=== PATIENT | female | born 1980 | race Caucasian/White ===

== ENCOUNTER 2016-06-23 15:50 | Emergency (ER) | payer BC ==
[2016-06-23 16:22] VITALS: BP 133/84
--- NOTE | 2016-06-23 16:37 | UC ---
Respiratory Complaint HPI - HPI Summary HPI Summary: cough, nasal congestion, FUNES, sinus pressure, malaise. No fever. Mild ST. Poor appetite. "I get sinus infections a lot, I think I have one again." Symptoms for 2d - History of Current Complaint Chief Complaint: UCGeneralIllness Stated Complaint: SINUSES Time Seen by Provider: 06/23/16 16:26 Hx Obtained From: Patient, Family/Manager New Product Hx Last Menstrual Period: 06/05/16 Onset/Duration: Gradual Onset, Lasting Days - 2 Timing: Constant Severity Initially: Mild Severity Currently: Moderate Character: Cough: Nonproductive Associated Signs And Symptoms: Positive: Chills, Wheezing - off and on, URI, Nasal Congestion, Hoarseness, Sinus Discomfort - Risk Factors Pulmonary Embolism Risk Factors: Negative Cardiac Risk Factors: Negative Pseudomonas Risk Factors: Negative Tuberculosis Risk Factors: Negative - Allergies/Home Medications Allergies/Adverse Reactions: Allergies Allergy/AdvReac Type Severity Reaction Status Date / Time pepperoni Allergy Vomiting Uncoded 06/23/16 16:22 PMH/Surg Hx/FS Hx/Imm Hx Endocrine History Of: Denies: Diabetes, Thyroid Disease, Hyperthyroidism, Hypothyroidism, Dyslipidemia Cardiovascular History Of: Denies: Cardiac Disorders, Hypertension, Pacemaker/ICD, Myocardial Infarction , Congestive Heart Failure, Atrial Fibrillation, Deep Vein Thrombosis, Bleeding Disorders Respiratory History Of: Reports: Asthma Denies: COPD, Bronchitis, Pneumonia, Pulmonary Embolism GI/ History Of: Reports: Gastroesophageal Reflux - She has not had any investigation or testing done on her GERD. Denies: Ulcer, Gastrointestinal Bleed, Gall Bladder Disease, Kidney Stones, Diverticulitis, Renal Disease, Urosepsis Neurological History Of: Denies: TIA, CVA, Dementia, Seizures, Migraine Psychological History Of: Denies: Anxiety, Depression, Bipolar Disorder, Schizophrenia, Post Traumatic Stress Disorder Cancer History Of: Denies: Lung Cancer, Colorectal Cancer, Breast Cancer, Prostate Cancer, Cervical Cancer Other History Of: Negative For: HIV, Hepatitis B, Hepatitis C, Anticoagulant Therapy - Surgical History Surgical History: Yes Surgery Procedure, Year, and Place: TONSILECTOMY - Family History Known Family History: Positive: None Negative: Cardiac Disease - No premature heart disease in 1st degree relatives. - Social History Occupation: Unemployed Lives: With Family Alcohol Use: None Substance Use Type: None Smoking Status (MU): Never Smoked Tobacco When Did the Patient Quit Smoking/Using Tobacco: 1999 - Immunization History Most Recent Influenza Vaccination: no Review of Systems Constitutional: Negative Skin: Negative Eyes: Negative ENT: Sore Throat, Nasal Discharge Respiratory: Cough Cardiovascular: Negative Gastrointestinal: Negative Genitourinary: Negative Motor: Negative Neurovascular: Negative Musculoskeletal: Negative Neurological: Headache Psychological: Negative All Other Systems Reviewed And Are Negative: Yes Physical Exam Triage Information Reviewed: Yes Appearance: Well-Appearing, No Pain Distress, Well-Nourished Vital Signs: Initial Vital Signs Temp 98.2 F 06/23/16 16:18 Pulse 88 06/23/16 16:18 Resp 18 06/23/16 16:18 BP 133/84 06/23/16 16:18 Pulse Ox 100 06/23/16 16:18 Vital Signs Reviewed: Yes Eye Exam: Normal Eyes: Positive: Conjunctiva Clear ENT: Positive: Hearing grossly normal, Pharyngeal erythema, Nasal congestion, Nasal drainage, TMs normal, Muffled/hoarse voice - hoarse. Negative: Tonsillar swelling, Tonsillar exudate, Trismus Neck exam: Normal Respiratory: Positive: Lungs clear, Normal breath sounds, No respiratory distress, No accessory muscle use Musculoskeletal Exam: Normal Neurological Exam: Normal Psychological Exam: Normal Skin Exam: Normal UC Diagnostic Evaluation - Laboratory O2 Sat by Pulse Oximetry: 100 Respiratory Course/Dx - Differential Dx/Diagnosis Differential Diagnosis/HQI/PQRI: Bronchitis, Lower Resp Infection, Sinusitis Provider Diagnoses: URI Discharge - Discharge Plan Condition: Stable Disposition: HOME Prescriptions: Albuterol HFA INHALER* [Ventolin HFA Inhaler*] 1 - 2 puff INH Q4H PRN #1 mdi PRN Reason: cough, wheezing Azithromycin TAB* [Zithromax TAB (Z-ACE) 250 mg #6 tabs] 2 tab PO .TODAY, THEN 1 DAILY #1 ace Guaifenesin-Codeine [Cheratussin AC] 1 - 2 teasp PO QID PRN #120 ml MDD 30ml PRN Reason: Cough Pseudoephedrine HCl [Sudafed 12 Hour] 120 mg PO BID PRN #20 tab PRN Reason: Congestion Patient Education Materials: Upper Respiratory Infection (ED) Referrals: No Primary Care Phys,NOPCP [Primary Care Provider] -
== END 2016-06-23 16:40 | disposition home or self-care (01) ==
LOC: UCCORT 15:50
DX: J06.9 Acute upper respiratory infection, unspecified (principal)
CPT/HCPCS: 99212; G0463

== ENCOUNTER 2017-11-14 11:26 | Emergency (ER) | payer BC ==
[2017-11-14 12:33] VITALS: BP 138/93
--- NOTE | 2017-11-14 13:00 | ED ---
Upper Extremity Pain - HPI Summary HPI Summary: 37F presents with left elbow pain for the past day. She states she pushed herself up with her arms behind her and felt a pop in her left elbow. the pain radiates to her thumb when she extends or supinates and pronates her wrist. no upper arm pain. pain is greatest at lateral aspect of elbow. no numbness or tingling. no weakness. states did not break anything. 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 - History of Current Complaint Chief Complaint: UCUpperExtremity Stated Complaint: LEFT ARM COMPLAINT Time Seen by Provider: 11/14/17 12:49 Hx Last Menstrual Period: period is due next week - Allergies/Home Medications Allergies/Adverse Reactions: Allergies Allergy/AdvReac Type Severity Reaction Status Date / Time pepperoni Allergy Vomiting Uncoded 11/14/17 12:31 Home Medications: Home Medications Heart Burn Med 1 dose PO DAILY 11/14/17 [History Confirmed 11/14/17] PMH/Surg Hx/FS Hx/Imm Hx Endocrine/Hematology History: Denies: Hx Anticoagulant Therapy, Hx Diabetes, Hx Thyroid Disease Cardiovascular History: Denies: Hx Congestive Heart Failure, Hx Deep Vein Thrombosis, Hx Hypertension , Hx Myocardial Infarction, Hx Pacemaker/ICD Respiratory History: Reports: Hx Asthma Denies: Hx Chronic Obstructive Pulmonary Disease (COPD), Hx Lung Cancer, Hx Pneumonia, Hx Pulmonary Embolism GI History: Denies: Hx Gall Bladder Disease, Hx Gastrointestinal Bleed, Hx Ulcer, Hx Urosepsis History: Denies: Hx Kidney Stones, Hx Renal Disease Sensory History: Denies: Hx Hearing Aid Neurological History: Denies: Hx Dementia, Hx Migraine, Hx Seizures, Hx Transient Ischemic Attacks (TIA) Psychiatric History: Denies: Hx Anxiety, Hx Depression, Hx Panic Disorder, Hx Schizophrenia, Hx Bipolar Disorder - Surgical History Surgery Procedure, Year, and Place: TONSILECTOMY Infectious Disease History: No Infectious Disease History: Denies: Traveled Outside the [place] in Last 30 Days - Family History Known Family History: Positive: None Negative: Cardiac Disease - No premature heart disease in 1st degree relatives. - Social History Alcohol Use: None Substance Use Type: Reports: None Smoking Status (MU): Never Smoked Tobacco Review of Systems Negative: Fever Negative: Chest Pain Negative: Shortness Of Breath Positive: Myalgia - left elbow and forearm pain All Other Systems Reviewed And Are Negative: Yes Physical Exam Triage Information Reviewed: Yes Vital Signs On Initial Exam: Initial Vitals Temp Pulse Resp BP Pulse Ox 98.1 F 73 14 138/93 99 11/14/17 12:26 11/14/17 12:11/14/17 12:26 11/14/17 12:11/14/17 12:26 Vital Signs Reviewed: Yes Appearance: Positive: Well-Appearing Skin: Positive: Warm, Dry Head/Face: Positive: Normal Head/Face Inspection Eyes: Positive: Normal, Conjunctiva Clear ENT: Positive: Pharynx normal Respiratory/Lung Sounds: Positive: Clear to Auscultation, Breath Sounds Present Cardiovascular: Positive: Normal, RRR Musculoskeletal: Positive: Limited @ - pronation and supination cause pain, Other - tenderness over lateral epicondyle and over brachioradialis, pain greatest with extension and supination of arm Neurological: Positive: Normal Psychiatric: Positive: Normal Diagnostics - Vital Signs Vital Signs Temp Pulse Resp BP Pulse Ox 11/14/17 12:26 98.1 F 73 14 138/93 99 - Laboratory Lab Statement: Any lab studies that have been ordered have been reviewed, and results considered in the medical decision making process. Course/Dx - Course Course Of Treatment: 37F presents with left elbow pain for the past day. She states she pushed herself up with her arms behind her and felt a pop in her left elbow. the pain radiates to her thumb when she extends or supinates and pronates her wrist. no upper arm pain. pain is greatest at lateral aspect of elbow. no numbness or tingling. no weakness. states did not break anything. 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 on exam has tenderness lateral epicondyles. pain greatest with supination and prontation. neurovascular intact. likely a sprain. will have follow up with ortho if no improvement with conservative treatments. will have follow up with primary as blood pressure is elevated at this visit. pateint understand and agrees with plan. - Diagnoses Differential Diagnosis/HQI/PQRI: Positive: Fracture (Closed), Strain, Sprain Provider Diagnoses: Left elbow pain Discharge - Sign-Out/Discharge Documenting (check all that apply): Discharge/Admit/Transfer - Discharge Plan Condition: Good Disposition: HOME Patient Education Materials: Elbow Sprain (ED) Referrals: Edu,Caren, MD [Primary Care Provider] - Lisa Rader MD [Medical Doctor] - Additional Instructions: use sling as needed Avoid repetitive supination and pronation of arm Ice, elevate Follow up with ortho Take tyenlol or ibuprofen every 6 hours as needed for pain Return to UC if develop any new or worsening symptoms - Billing Disposition and Condition Condition: GOOD Disposition: Home
== END 2017-11-14 13:08 | disposition home or self-care (01) ==
LOC: UCCORT 11:26
DX: M25.522 Pain in left elbow (principal); X50.0XXA Overexertion from strenuous movement or load, initial encounter; Y93.89 Activity, other specified; Y92.9 Unspecified place or not applicable
CPT/HCPCS: 99211; G0463

== ENCOUNTER 2019-06-24 10:32 | Emergency (ER) | payer BC ==
--- OUTSIDE RECORDS SUMMARY | 2019-06-24 10:55 | XMS REPORT | Continuity of Care Document ---
:1980 External Reference #:[id number] Author Name Lore Dhillon MD Address [address] [place] [address] Care Team Providers Name Role Phone April Heaton CNM - Advanced Practice Care Team Information Automatic Toe Laster [phone] Attic Blower Marie Peoples NP, JIMENA - Nurse Care Team Information Automatic Toe Laster Practitioner Problems Active Problems Provider Date Obesity Caren Sorensen MD Onset: 09/11/2016 Exacerbation of intermittent asthma Caren Sorensen MD Onset: 09/11/2016 Allergic rhinitis Caren Sorensen MD Onset: 09/11/2016 Solitary nodule of lung Caren Sorensen MD Onset: 09/11/2016 Gastroesophageal reflux disease Caren Sorensen MD Onset: 09/11/2016 Pain in limb Glen Kay M.D. Onset: 09/30/2017 Cellulitis of right lower limb Glen Kay M.D. Onset: 09/30/2017 Taking medication Glen Kay M.D. Onset: 09/30/2017 Pain in thoracic spine Lore Dhillon MD Onset: 04/18/2019 Neck pain Lore Dhillon MD Onset: 04/18/2019 Myalgia, other site Lore Dhillon MD Onset: 03/29/2019 Shoulder joint pain Lore Dhillon MD Onset: 03/29/2019 Social History Type Date Description Comments Sex Unknown Tobacco Use Start: Unknown Never Smoked Cigarettes ETOH Use Denies alcohol use Recreational Drug Use Denies Drug Use Tobacco Use Start: Unknown End: Patient is a former smoked for 1 year Unknown smoker when she was 19 Smoking Status Reviewed: 05/15/19 Patient is a former smoked for 1 year smoker when she was 19 Allergies, Adverse Reactions, Alerts Active Allergies Reaction Severity Comments Date NKDA 01/03/2015 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 Medications Active Medications SIG Qnty Indications Ordering Date Provider Famotidine 1 tabby mouth twice 60tabs K21.9 Caren Sorensen, 12/07/2018 20mg a day Tablets Thumb To use when awake 1units M25.531 Caren Sorensen, 11/22/2018 Splint/Neoprene Medium Misc Bumetanide 2 tab by mouth in 90tabs Ratnasingam, 04/19/2018 1mg morning and 1 tab MD Teresa Tablets in afternoon Potassium Chloride take 2 tablets with 90tabs E87.6 Caren Sorensen, 2017 ER food every morning 10Meq Tablets ER and 1 tablet every afternoon Proair HFA 1-2 inhalations 8.500gm Caren Sorensen, 03/24/2018 every 4 hours as 108(90Base) mcg/Act needed for Aerosol shortness of breath and cough Omeprazole 1 tab by mouth 30caps Caren Sorensen, 09/27/2017 20mg every day Capsules DR Vazquez Unknown History Medications Cyclobenzaprine HCL 1 tab by mouth 3 30tabs M79.18 Lore Dhillon, 2018 - 10mg times a day when 05/15/2019 Tablets necessary Wrist Brace right wrist. Wear 1units M25.531 Edu, 11/22/2018 - Misc brace during the MD Caren 11/22/2018 day Medications Administered in Office Medication SIG Qnty Indications Ordering Provider Date Depomedrol 40mg/1cc Caprice Burgos MD 04/04/2019 (methylprednisolone acetate) Injection Immunizations CPT Code Status Date Vaccine Lot # [id number] Refused 04/05/2019 Influenza Virus Vaccine, Quadrivalent, 36 Mos+, .5ML Vital Signs Date Vital Result Comment 05/05/2019 8:28am BP Systolic Sitting Left Arm 125 mmHg BP Diastolic Sitting Left Arm 64 mmHg Body Temperature 98.1 F Heart Rate 88 /min Height 68 inches 5'8" Weight 299.00 lb BMI (Body Mass Index) 45.5 kg/m2 BSA (Body Surface Area) 2.42 m2 She[place]ahl body weight in kilograms 63 kg 04/18/2019 8:27am BP Systolic Sitting Right Arm 120 mmHg BP Diastolic Sitting Right Arm 67 mmHg Heart Rate 91 /min Height 68 inches 5'8" Weight 294.00 lb BMI (Body Mass Index) 44.7 kg/m2 BSA (Body Surface Area) 2.41 m2 She[place]ahl body weight in kilograms 63 kg Results Test Acquired Date Facility Test Result H/L Range Note Basic Metabolic 04/03/2019 [facility] Glucose 135 mg/dL High 74-106 1 Panel [address] [place], [place] [id number] [phone] BUN 15 mg/dL Normal 7-18 Creatinine 0.9 mg/dL Normal 0.6-1.3 Glom Filtration Rate, Estimate >60 mL/min >60 If >60 mL/min >60 2 BUN/Creat 16.6 ratio Sodium 138 mmol/L Normal 136-145 Potassium 3.9 mmol/L Normal 3.5-5.1 Chloride 108 mmol/L High 98-107 Carbon Dioxide 24 mmol/L Normal 21-32 Anion Gap 6 mEq/L Low 8-16 Calcium 8.6 mg/dL Normal 8.5-10.1 Glycohemoglobin 04/03/2019 [facility] Glycohemoglobin 5.7 % Normal 4.2-6.3 3 A1c [address] [facility] (A1c) [place], [place] [id number] [phone] eAG 117 mg/dL LDL Cholesterol Profile 04/03/2019 [facility] Cholesterol 181 mg/dL <[address] [place], [place] [id number] [phone] Triglycerides 161 mg/dL High <150 5 HDL Cholesterol 39 mg/dL Low >40 6 LDL-Cholesterol 110 mg/dL < 100 7 CBC W/Automated 04/03/2019 [facility] White Blood 7.6 K/uL Normal 3.1-10.[address] [place] [address] [phone] Red Blood Count 4.62 M/uL Normal 3.90-5.40 Hemoglobin 13.2 gm/dL Normal 11.6-15.8 Hematocrit 42.1 % Normal 36.0-46.1 Mean Cell Volume 91.1 fl Normal 80.9-99.0 Mean Corpuscular HGB 28.6 pg Normal 25.9-32.7 Mean Corpuscular HGB Conc 31.4 g/dL Normal 30.8-34.3 Platelet Count 284 K/uL Normal 155-360 Red Cell Distri Width SD 42.0 fl Normal 36-47 Red Cell Distri Width %CV 12.7 % Normal 11.7-14.4 Mean Platelet Volume 10.1 fl Normal 8.9-12.4 Neut% 69.6 % Normal 40.4-72.8 Lymph % 21.3 % Normal 20.0-42.0 [place] % 5.1 % Normal 4.3-13.2 Eo% 3.0 % Normal 0.0-6.6 Bas% 0.7 % Normal 0.0-1.1 Immature Grans 0.3 % Normal 0.0-5.0 NRBC % 0.0 /100WBC < 10/ 100 WBC Neut# 5.31 K/uL Normal 1.8-7.0 Lymph # 1.62 K/uL Normal 1.0-4.0 [place] # 0.39 K/uL Normal 0.3-0.9 Eos # 0.23 K/uL Normal 0.0-0.5 Baso # 0.05 K/uL Normal 0.0-0.1 Immature Grans Absolute 0.02 K/uL NRBC # 0.00 K/uL 1 R60.0, E87.6, R73.9, E66.09 2 Note: Persistent reduction for 3 months or more in an eGFR <60 mL/min/1.73 m2 defines CKD. Patients with eGFR values >/=60 mL/min/1.73 m2 may also have CKD if evidence of persistent proteinuria is present. The original MDRD equation for estimated GFR is not valid for patients less than 18 years of age. Additional information may be found at www.kdoqi.org. 3 Elevated levels of HbA1c suggest the need for more aggressive treatment of glycemia. The [place] [employer] recommends that a primary goal of therapy should be a HbA1c of <7% and that physicians should re-evaluate the treatment regimen in patients with HbA1c values consistently >8%. 4 Reference Guidelines*: Desirable: ........... < 200 mg/dL Borderline High: ..... 200-239 mg/dL High: ................ >= 240 mg/dL * The National Cholesterol Education Program (NCEP) 5 Reference Guidelines*: Normal: ............. < 150 mg/dL Borderline High: .... 150-199 mg/dL High: ............... 200-499 mg/dL Very High: .......... > 500 mg/dL * Source: National Cholesterol Education Program (NCEP) 6 Reference Guidelines*: Low HDL: ..... < 40 mg/dL Normal: ..... 40-60 mg/dL Desirable: ... > 60 mg/dL *The National Cholesterol Education Program(NCEP) 7 Reference Guidelines*: Optimal:........... <100 mg/dL Near Optimal....... 100-129 mg/dL Borderline High.... 130-159 mg/dL High............... 160-189 mg/dL Very High.......... >=190 mg/dL * Source: National Cholesterol Education Program (NCEP) Procedures Date Code Description Status 05/08/2019 Injection Single Or Multiple Trigger Points Three Or More Completed Muscles 05/02/2019 Injection Single Or Multiple Trigger Points Three Or More Completed Muscles 04/25/2019 Injection Single Or Multiple Trigger Points Three Or More Completed Muscles 04/18/2019 Injection Single Or Multiple Trigger Points Three Or More Completed Muscles 04/04/201920514 Injection:Tendon Sheath,Lig. Cyst Completed 03/23/2019 91305 Radiology, Shoulder: Two Views (Sso) Completed 03/23/2019 57764 Radiology, Shoulder: Two Views (Sso) Completed Medical Devices Description No Information Available Encounters Type Date Location Provider Dx Diagnosis Office Visit 05/05/2019 Physical Medicine & [facility], MD Lore M54.2 Cervicalgia 8:30a Infectious Disease M54.6 Pain in thoracic spine M79.18 Myalgia, other site Office Visit 04/05/2019 4:00p Primary Care Ofelia, R60.0 Localized edema Office MD Teresa Z28.21 Immunization not carried out because of patient refusal Office Visit 04/04/2019 11:00a Orthopaedic Office Caprice Burgos, M25.532 Pain in left MD wrist M65.4 Radial styloid tenosynovitis [de Quervain] Office Visit 03/29/2019 9:30a Physical Medicine Lore Dhillon, M25.512 Pain in left & Infectious MD shoulder Disease M79.18 Myalgia, other site Office Visit 12/07/2018 1:00p Primary Care Caren Sorensen, M25.531 Pain in right Office MD wrist M65.4 Radial styloid tenosynovitis [de Quervain] R60.0 Localized edema K21.9 Gastro-esophageal reflux disease without esophagitis Office Visit 11/22/2018 2:30p Primary Care Marie Peoples, M25.531 Pain in Office MS, [employer] MANAGER-C, CNM right wrist M65.4 Radial styloid tenosynovitis [de Quervain] Assessments Date Code Description Provider 05/15/2019 M54.2 Cervicalgia Lore Dhillon MD 05/15/2019 M54.6 Pain in thoracic spine Lore Dhillon MD 05/15/2019 M79.18 Myalgia, other site Lore Dhillon MD 05/12/2019 M54.2 Cervicalgia Lore Dhillon MD 05/12/2019 M54.6 Pain in thoracic spine Lore Dhillon MD 05/12/2019 M79.18 Myalgia, other site Lore Dhillon MD 05/08/2019 M54.2 Cervicalgia Lore Dhillon MD 05/08/2019 M54.6 Pain in thoracic spine Lore Dhillon MD 05/08/2019 M79.18 Myalgia, other site Lore Dhillon MD 05/05/2019 M54.2 Cervicalgia Lore Dhillon MD 05/05/2019 M54.6 Pain in thoracic spine Lore Dhillon MD 05/05/2019 M79.18 Myalgia, other site Lore Dhillon MD 05/02/2019 M54.2 CervicalLore Chaney MD 05/02/2019 M54.6 Pain in thoracic spine Lore Dhillon MD 05/02/2019 M79.18 Myalgia, other site Lore Dhillon MD 04/25/2019 M54.2 Cervicalgia Lore Dhillon MD 04/25/2019 M54.6 Pain in thoracic spine Lore Dhillon MD 04/25/2019 M79.18 Myalgia, other site Lore Dhillon MD 04/18/2019 M54.2 Cervicalgia Lore Dhillon MD 04/18/2019 M54.6 Pain in thoracic spine Lore Dhillon MD 04/18/2019 M79.18 Myalgia, other site Lore Dhillon MD 04/05/2019 R60.0 Localized edema Teresa Gilbert MD 04/05/2019 Z28.21 Immunization not carried out because Teresa Gilbert MD of patient refusal 04/04/2019 M25.532 Pain in left wrist Caprice Burgos MD 04/04/2019 M65.4 Radial styloid tenosynovitis [Caprice Yao MD Quervain] 03/29/2019 M25.512 Pain in left shoulder Lore Dhillon MD 03/29/2019 M79.18 Myalgia, other site Lore Dhillon MD 03/23/2019 M25.512 Pain in left shoulder Caprice Burgos MD 03/23/2019 M75.42 Impingement syndrome of left Caprice Burgos MD shoulder 03/23/2019 M54.12 Radiculopathy, cervical region Caprice Burgos MD 12/07/2018 M25.531 Pain in right wrist Caren Sorensen MD 12/07/2018 M65.4 Radial styloid tenosynovitis [Caren Oshea MD Quervain] 12/07/2018 R60.0 Localized edema Caren Sorensen MD 12/07/2018 K21.9 Gastro-esophageal reflux disease Caren Sorensen MD without esophagitis 11/22/2018 M25.531 Pain in right wrist Marie Peoples MS, [employer] MANAGER-C, CNM 11/22/2018 M65.4 Radial styloid tenosynovitis [Marie Moreno MS, ROBIN -C, Aidee] JIMENA Plan of Treatment Future Appointment(s):07/06/2019 4:00 pm - Teresa Gilbert MD at Primary Care [id number]/15/2019 - Lore Dhillon, MDM54.2 [id number] Pain in thoracic hbrkiI84.18 Myalgia, other site Functional Status Functional Condition Comment Date Status Independent with all ADL's Active Mental Status Description No Information Available Referrals Refer to Reason for Referral Status Appt Date Lore Dhillon MD Neck & Back Pain Closed 03/29/2019 [address] [place] [address] [phone]
--- OUTSIDE RECORDS SUMMARY | 2019-06-24 10:55 | XMS REPORT | Continuity of Care Document ---
:1980 External Reference #:[id number] Author Name Lore Dhillon MD Address [address] [place] [address] Care Team Providers Name Role Phone April Heaton CNM - Advanced Practice Care Team Information Interior Design Project Manager Cook Helper Dessert Marie Peoples NP, JIMENA - Nurse Care Team Information Interior Design Project Manager Practitioner Problems Active Problems Provider Date Obesity [...] when she was 19 Smoking Status Reviewed: 05/05/19 Patient is a former smoked for 1 year smoker when she was 19 Allergies, Adverse Reactions, Alerts Active Allergies Reaction Severity Comments Date NKDA 01/03/2015 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 Medications Active Medications SIG Qnty Indications Ordering Date Provider Cyclobenzaprine HCL 1 tab by mouth 3 30tabs M79.18 TatyanaLore rodriguez, 2018 10mg times a day when MD Tablets necessary Famotidine 1 tabby mouth 60tabs K21.9 Caren Sorensen, 12/07/2018 20mg Tablets twice a day Thumb Splint/Neoprene To use when awake 1units M25.531 Caren Sorensen, 06/2018 Medium [place] [facility] [place] Bumetanide 2 tab by mouth in 90tabs Caren Sorensen, 04/19/2018 1mg Tablets morning and 1 tab MD in afternoon Potassium Chloride ER take 2 tablets 90tabs E87.6 Caren Sorensen, 2017 with food every MD 10Meq Tablets ER morning and 1 tablet every afternoon Proair HFA 1-2 inhalations 8.500gm Caren Sorensen, 03/24/2018 108(90Base) every 4 hours as MD mcg/Act Aerosol needed for shortness of breath and cough Omeprazole 1 tab by mouth 30caps Caren Sorensen, 09/27/2017 20mg Capsules every day MD DR Reynaga apply powder in 60gm Caren Sorensen, 03/16/2017 [id number]/GM abdomen folds two MD Powder times a day as needed until rash disappears. History Medications Wrist Brace right wrist. Wear 1units M25.531 Caren Sorensen MD 11/22/2018 - brace during the 11/22/2018 [facility] [place] Medications Administered in Office Medication SIG Qnty Indications Ordering Provider Date Depomedrol 40mg/1cc Caprice Burgos MD 04/04/2019 (methylprednisolone acetate) Injection Immunizations CPT Code Status Date Vaccine Lot # [id number] Refused 04/05/2019 Influenza Virus Vaccine, Quadrivalent, 36 Mos+, .5ML Vital Signs Date Vital Result Comment 05/05/2019 8:28am BP Systolic Sitting Left Arm 125 mmHg BP Diastolic Sitting Left Arm 64 mmHg Body Temperature 98.1 F Heart Rate 88 /min Height 68 inches 5'8" Weight 299.00 lb BMI (Body Mass Index) 45.5 kg/m2 BSA (Body Surface Area) 2.42 m2 [place] body weight in kilograms 63 kg 04/18/2019 8:27am BP Systolic Sitting Right Arm 120 mmHg BP Diastolic Sitting Right Arm 67 mmHg Heart Rate 91 /min Height 68 inches 5'8" Weight 294.00 lb BMI (Body Mass Index) 44.7 kg/m2 BSA (Body Surface Area) 2.41 m2 [place] body weight in kilograms 63 kg Results Test Acquired Date Facility Test Result H/L Range Note Basic Metabolic 04/03/2019 [facility] Glucose 135 mg/dL High 74-106 1 Panel [address] [place], [place] [address] [phone] BUN 15 mg/dL Normal 7-18 Creatinine 0.9 mg/dL Normal 0.6-1.3 Glom Filtration Rate, Estimate >60 mL/min >60 If >60 mL/min >60 2 BUN/Creat 16.6 ratio Sodium 138 mmol/L Normal 136-145 Potassium 3.9 mmol/L Normal 3.5-5.1 Chloride 108 mmol/L High 98-107 Carbon Dioxide 24 mmol/L Normal 21-32 Anion Gap 6 mEq/L Low 8-16 Calcium 8.6 mg/dL Normal 8.5-10.1 Glycohemoglobin 04/03/2019 [facility] Glycohemoglobin 5.7 % Normal 4.2-6.3 3 A1c [address] [facility] (A1c) [place], [place] [id number] [phone] eAG 117 mg/dL LDL Cholesterol Profile 04/03/2019 [facility] Cholesterol 181 mg/dL <[address] [place], [place] [address] [phone] Triglycerides 161 mg/dL High <150 5 HDL Cholesterol 39 mg/dL Low >40 6 LDL-Cholesterol 110 mg/dL < 100 7 CBC W/Automated 04/03/2019 [facility] White Blood 7.6 K/uL Normal 3.1-10.7 Diff [address] [facility] [place] [address] [phone] Red Blood Count 4.62 M/uL Normal 3.90-5.40 [...] 40.4-72.8 Lymph % 21.3 % Normal 20.0-42.0 [place] % 5.1 % Normal 4.3-13.2 Eo% 3.0 % Normal 0.0-6.6 Bas% 0.7 % Normal 0.0-1.1 Immature Grans 0.3 % Normal 0.0-5.0 NRBC % 0.0 /100WBC < 10/ 100 WBC Neut# 5.31 K/uL Normal 1.8-7.0 Lymph # 1.62 K/uL Normal 1.0-4.0 [place] # 0.39 K/uL Normal 0.3-0.9 Eos # [...] for more aggressive treatment of glycemia. The [place] [employer] recommends that a primary goal [...] Program (NCEP) Procedures Date Code Description Status 04/25/2019 Injection Single Or Multiple Trigger Points Three Or More Completed Muscles 04/18/2019 Injection Single Or Multiple Trigger Points Three Or More Completed Muscles 04/04/2019 Injection:Tendon Sheath,Lig. Cyst Completed 03/23/2019 90651 Radiology, Shoulder: Two Views (Sso) Completed 03/23/2019 70641 Radiology, Shoulder: Two Views (Sso) Completed Medical Devices Description No Information Available Encounters Type Date Location Provider Dx Diagnosis Office Visit 05/05/2019 Physical Medicine & Lore Dhillon MD M54.2 Cervicalgia 8:30a Infectious Disease M54.6 Pain in thoracic spine M79.18 Myalgia, other site Office Visit 04/05/2019 4:00p Primary Care [place] R60.0 Localized edema Office MD Teresa Z28.21 Immunization not carried out because of patient refusal Office Visit 04/04/2019 11:00a Orthopaedic Office Caprice Burgos, M25.532 Pain in left MD wrist M65.4 Radial styloid tenosynovitis [de Quervain] Office Visit 03/29/2019 9:30a Physical Medicine Lore Dhillon, M25.512 Pain in left & Infectious MD shoulder Disease M79.18 Myalgia, other site Office Visit 12/07/2018 1:00p Primary Care Edu Caren, M25.531 Pain in right Office MD wrist M65.4 Radial styloid tenosynovitis [de Quervain] R60.0 Localized edema K21.9 Gastro-esophageal reflux disease without esophagitis Office Visit 11/22/2018 2:30p [facility] [place] Marie, M25.531 Pain in Office MS, ADULT CAREGIVER-C, CNM right wrist M65.4 Radial styloid tenosynovitis [de Quervain] Assessments Date Code Description Provider 05/08/2019 M54.2 Cervicalgia Lore Dhillon MD 05/08/2019 [...] Lore Dhillon MD 04/05/2019 R60.0 Localized edema Ratnasingam, Shamanthy, MD 04/05/2019 Z28.21 Immunization not carried out [...] 11/22/2018 M25.531 Pain in right wrist Marie Peoples, , ADULT CAREGIVER-C, CNM 11/22/2018 M65.4 Radial styloid tenosynovitis [Marie Moreno MS, ADULT CAREGIVER -C, Aidee] CN Plan of Treatment Future Appointment(s):07/06/2019 4:00 pm - Teresa Gilbert MD at Primary Care Mfgttb3105/08/2019 - Lore Dhillon, MDM54.2 DwqrtmsefzuG49.6 Pain in thoracic vdrrwO89.18 Myalgia, other siteNew Therapy:Physical TherapyFollow up:. Functional Status Functional Condition Comment Date Status Independent with all ADL's Active Mental Status Description No Information Available Referrals Refer to Reason for Referral Status Appt Date Lore Dhillon MD Neck & Back Pain Closed 03/29/2019 [address], [address] [place] [address] [phone]
--- OUTSIDE RECORDS SUMMARY | 2019-06-24 10:55 | XMS REPORT | Continuity of Care Document ---
:1980 External Reference #:[id number] Author Name Lore Dhillon MD Address [address] [place] [address] Care Team Providers Name Role Phone April Heaton CNM - Advanced Practice Care Team Information Communication Studies Professor [phone] Founder And President Marie Peoples NP, JIMENA - Nurse Care Team Information Communication Studies Professor Practitioner Problems Active Problems Provider Date Obesity [...] CPT Code Status Date Vaccine Lot # [id number] Refused 04/05/2019 Influenza Virus Vaccine, Quadrivalent, 36 Mos+, .5ML Vital Signs Date Vital Result Comment 05/15/2019 11:02am BP Systolic Sitting Right Arm 117 mmHg BP Diastolic Sitting Right Arm 68 mmHg Body Temperature 97.6 F Heart Rate 79 /min Height 68 inches 5'8" Weight 296.00 lb BMI (Body Mass Index) 45.0 kg/m2 BSA (Body Surface Area) 2.41 m2 [place] body weight in kilograms 63 kg 05/05/2019 8:28am BP Systolic Sitting Left Arm 125 mmHg BP Diastolic Sitting Left Arm 64 mmHg Body Temperature 98.1 F Heart Rate 88 /min Height 68 inches 5'8" Weight 299.00 lb BMI (Body Mass Index) 45.5 kg/m2 BSA (Body Surface Area) 2.42 m2 [place] body weight in kilograms 63 kg Results Test Acquired Date Facility Test Result H/L Range Note Basic Metabolic 04/03/2019 [facility] Glucose 135 mg/dL High 74-106 1 Panel [address] [place] [address] [phone] BUN 15 mg/dL Normal 7-18 Creatinine 0.9 mg/dL Normal 0.6-1.3 Glom Filtration Rate, Estimate >60 mL/min >60 If >60 mL/min >60 2 BUN/Creat 16.6 ratio Sodium 138 mmol/L Normal 136-145 Potassium 3.9 mmol/L Normal 3.5-5.1 Chloride 108 mmol/L High 98-107 Carbon Dioxide 24 mmol/L Normal 21-32 Anion Gap 6 mEq/L Low 8-16 Calcium 8.6 mg/dL Normal 8.5-10.1 Glycohemoglobin 04/03/2019 [facility] Glycohemoglobin 5.7 % Normal 4.2-6.3 3 [address]c [address] [facility] (A1c) [place] [address] [phone] eAG 117 mg/dL LDL Cholesterol Profile 04/03/2019 [facility] Cholesterol 181 mg/dL <[address] [place] [address] [phone] Triglycerides 161 mg/dL High <150 5 HDL Cholesterol 39 mg/dL Low >40 6 LDL-Cholesterol 110 mg/dL < 100 7 CBC W/Automated 04/03/2019 [facility] White Blood 7.6 K/uL Normal 3.1-10.[address] [place] [address] [phone] Red Blood Count 4.62 M/uL Normal 3.90-5.40 [...] 40.4-72.8 Lymph % 21.3 % Normal 20.0-42.0 [place] % 5.1 % Normal 4.3-13.2 Eo% 3.0 % Normal 0.0-6.6 Bas% 0.7 % Normal 0.0-1.1 Immature Grans 0.3 % Normal 0.0-5.0 NRBC % 0.0 /100WBC < 10/ 100 WBC Neut# 5.31 K/uL Normal 1.8-7.0 Lymph # 1.62 K/uL Normal 1.0-4.0 [place] # 0.39 K/uL Normal 0.3-0.9 Eos # [...] for more aggressive treatment of glycemia. The [place] Diabetes Association recommends that a primary goal [...] Muscles 04/04/2019 Injection:Tendon Sheath,Lig. Cyst Completed 03/23/2019 12509 Radiology, Shoulder: Two Views (Sso) Completed 03/23/2019 94479 Radiology, Shoulder: Two Views (Sso) Completed Medical Devices Description No Information Available Encounters Type Date Location Provider Dx Diagnosis Office Visit 05/05/2019 Physical Medicine & CatorLore MD M54.2 Cervicalgia 8:30a Infectious Disease M54.6 [...] Marie Peoples, M25.531 Pain in Office MS, GERENTOLOGICAL PHYSIOTHERAPIST-C, CNM right wrist M65.4 Radial styloid tenosynovitis [...] Pain in right wrist Marie Peoples, , GERENTOLOGICAL PHYSIOTHERAPIST-C, JIMENA 11/22/2018 M65.4 Radial styloid tenosynovitis [Marie Moreno MS, ROBIN -C, Aidee] JIMENA Plan of Treatment Future Appointment(s):06/02/2019 2:00 pm - Caprice Burgos MD at Orthopaedic Pzwfqe0407/06/2019 4:00 pm - Teresa Gilbert MD at Primary Care [id number] - Lore Dhillon, MDM54.2 PdsjfqvpcixF59.6 Pain in thoracic mvgpbK52.18 Myalgia, other siteFollow up:She will follow up in the orthopedic office with Dr. Burgos on 06/02/19 at 2 PM. Functional Status Functional Condition Comment Date Status Independent with all ADL's Active Mental Status Description No Information Available Referrals Refer to Reason for Referral Status Appt Date Lore Dhillon MD Neck & Back Pain Closed 03/29/2019 [address] [place] [address] [phone]
--- OUTSIDE RECORDS SUMMARY | 2019-06-24 10:55 | XMS REPORT | Continuity of Care Document ---
:1980 External Reference #:[id number] Author Name Caprice Burgos MD Address [address] [place] [address] Care Team Providers Name Role Phone April Heaton CNM - Advanced Practice Care Team Information Management Trainee Aeronautical Engineering Teacher Marie Peoples NP, JIMENA - Nurse Care Team Information Management Trainee [phone] Practitioner Problems Active Problems Provider Date Obesity [...] when she was 19 Smoking Status Reviewed: 06/02/19 Patient is a former smoked for 1 year smoker when she was 19 Allergies, Adverse Reactions, Alerts Active Allergies Reaction Severity Comments Date NKDA 01/03/2015 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 Medications Active Medications SIG Qnty Indications Ordering Date Provider Famotidine 1 tabby mouth twice 60tabs K21.9 Davide Sorensena, 12/07/2018 20mg a day Tablets Thumb To use when awake 1units M25.531 Davide Sorensena, 11/22/2018 Splint/Neoprene Medium Misc Bumetanide 2 tab by mouth in 90tabs Ratnasingam, 04/19/2018 1mg morning and 1 tab MD Teresa Tablets in afternoon Potassium Chloride take 2 tablets with 90tabs E87.6 Davide Sorensena, 2017 ER food every morning 10Meq Tablets ER and 1 tablet every afternoon Proair HFA 1-2 inhalations 8.500gm Davide Sorensena, 03/24/2018 every 4 hours as 108(90Base) mcg/Act needed for Aerosol shortness of breath and cough Omeprazole 1 tab by mouth 30caps Davide Sorensena, 09/27/2017 20mg every day Capsules DR Vazquez Unknown History Medications Cyclobenzaprine HCL 1 tab by mouth 3 30tabs M79.18 Lore Dhillon, 2018 - 10mg times a day when MD 05/15/2019 Tablets necessary Medications Administered in Office Medication SIG Qnty Indications Ordering Provider Date Depomedrol 40mg/1cc Caprice Burgos MD 04/04/2019 (methylprednisolone acetate) Injection Immunizations CPT Code Status Date Vaccine Lot # [id number] Refused 04/05/2019 Influenza Virus Vaccine, Quadrivalent, 36 Mos+, .5ML Vital Signs Date Vital Result Comment 06/02/2019 1:56pm BP Systolic Sitting Right Arm 138 mmHg BP Diastolic Sitting Right Arm 62 mmHg 05/15/2019 11:02am BP Systolic Sitting Right Arm 117 mmHg BP Diastolic Sitting Right Arm 68 mmHg Body Temperature 97.6 F Heart Rate 79 /min Height 68 inches 5'8" Weight 296.00 lb BMI (Body Mass Index) 45.0 kg/m2 BSA (Body Surface Area) 2.41 m2 [place] body weight in kilograms 63 kg Results Test Acquired Date Facility Test Result H/L Range Note Xray 06/02/2019 [facility] - Orthopedic RMP, <pending> [address] C-Spine, [place] [address] & lateral, [phone] limited (2 or 3 views) Basic Metabolic 04/03/2019 [facility] Glucose 135 mg/dL High 74-106 [address] [place], [place] [address] [phone] BUN 15 mg/dL Normal 7-18 Creatinine 0.9 mg/dL Normal 0.6-1.3 Glom Filtration Rate, Estimate >60 mL/min >60 If >60 mL/min >60 2 BUN/Creat 16.6 ratio Sodium 138 mmol/L Normal 136-145 Potassium 3.9 mmol/L Normal 3.5-5.1 Chloride 108 mmol/L High 98-107 Carbon Dioxide 24 mmol/L Normal 21-32 Anion Gap 6 mEq/L Low 8-16 Calcium 8.6 mg/dL Normal 8.5-10.1 Glycohemoglobin 04/03/2019 [facility] Glycohemoglobin 5.7 % Normal 4.2-6.[address] (A1c) [place], [place] [address] [phone] eAG 117 mg/dL LDL Cholesterol Profile 04/03/2019 [facility] Cholesterol 181 mg/dL <[address] [place], [place] [address] [phone] Triglycerides 161 mg/dL High <150 5 HDL Cholesterol 39 mg/dL Low >40 6 LDL-Cholesterol 110 mg/dL < 100 7 CBC W/Automated 04/03/2019 [facility] White Blood 7.6 K/uL Normal 3.1-10.[address] Count [place], [place] [address] [phone] Red Blood Count 4.62 M/uL Normal 3.90-5.40 [...] 40.4-72.8 Lymph % 21.3 % Normal 20.0-42.0 [place] % 5.1 % Normal 4.3-13.2 Eo% 3.0 % Normal 0.0-6.6 Bas% 0.7 % Normal 0.0-1.1 Immature Grans 0.3 % Normal 0.0-5.0 NRBC % 0.0 /100WBC < 10/ 100 WBC Neut# 5.31 K/uL Normal 1.8-7.0 Lymph # 1.62 K/uL Normal 1.0-4.0 [place] # 0.39 K/uL Normal 0.3-0.9 Eos # [...] Program (NCEP) Procedures Date Code Description Status 06/02/2019 78330 Radiology, C-Spine, 2 Or 3 Views Completed 05/15/201965918 Injection Single Or Multiple Trigger Points Three Or More Completed Muscles 05/12/201949289 Injection Single Or Multiple Trigger Points Three Or More Completed Muscles 05/08/2019 Injection Single Or Multiple Trigger Points Three Or More Completed Muscles 05/02/2019 Injection Single Or Multiple Trigger Points Three Or More Completed Muscles 04/25/2019 Injection Single Or Multiple Trigger Points Three Or More Completed Muscles 04/18/2019 Injection Single Or Multiple Trigger Points Three Or More Completed Muscles 04/04/201924730 Injection:Tendon Sheath,Lig. Cyst Completed 03/23/2019 46824 Radiology, Shoulder: Two Views (Sso) Completed 03/23/2019 70403 Radiology, Shoulder: Two Views (Sso) Completed Medical Devices Description No Information Available Encounters Type Date Location Provider Dx Diagnosis Office Visit 06/02/2019 Orthopaedic Office Caprice Burgos MD M54.2 Cervicalgia 2:00p M75.42 Impingement syndrome of left shoulder M54.12 Radiculopathy, cervical region Office Visit 05/15/2019 10:45a Physical Medicine & CatLore rodriguez MD M54.2 Cervicalgia Infectious Disease M54.6 Pain in thoracic spine M79.18 Myalgia, other site Office Visit 05/05/2019 8:30a Physical Medicine & Lore Dhillon MD M54.2 Cervicalgia Infectious Disease M54.6 Pain in thoracic spine M79.18 Myalgia, other site Office Visit 04/05/2019 4:00p Primary Care Ratnasingam, R60.0 Localized edema Office MD Teresa Z28.21 Immunization not carried out because of patient refusal Office Visit 04/04/2019 11:00a Orthopaedic Office Caprice Burgos, M25.532 Pain in left MD wrist M65.4 Radial styloid tenosynovitis [de Quervain] Office Visit 03/29/2019 9:30a Physical Medicine Lore Dhillon M25.512 Pain in left & Infectious MD shoulder Disease M79.18 Myalgia, other site Office Visit 12/07/2018 1:00p Primary Care Caren Sorensen, M25.531 Pain in right Office MD wrist M65.4 Radial styloid tenosynovitis [de Quervain] R60.0 Localized edema K21.9 Gastro-esophageal reflux disease without esophagitis Assessments Date Code Description Provider 06/02/2019 M54.2 Cervicalgia Caprice Burgos MD 06/02/2019 M75.42 Impingement syndrome of left shoulder Caprice Burgos MD 06/02/2019 M54.12 Radiculopathy, cervical region Caprice Burgos MD 05/15/2019 M54.2 Cervicalgia Lore Dhillon MD 05/15/2019 M54.6 Pain in thoracic spine Lore Dhillon MD 05/15/2019 M79.18 Myalgia, other site Lore Dhillon MD 05/12/2019 M54.2 Cervicalgia Lore Dhillon MD 05/12/2019 M54.6 Pain in thoracic spine Lore Dhillon MD 05/12/2019 M79.18 Myalgia, other site Lore Dhillon MD 05/08/2019 M54.2 CervicalLore Chaney MD 05/08/2019 M54.6 Pain in thoracic spine Lore Dhillon MD 05/08/2019 M79.18 Myalgia, other site Lore Dhillon MD 05/05/2019 M54.2 Cervicalgia Lore Dhillon MD 05/05/2019 M54.6 Pain in thoracic spine Lore Dhillon MD 05/05/2019 M79.18 Myalgia, other site Lore Dhillon MD 05/02/2019 M54.2 Cervicalgia Lore Dhillon MD 05/02/2019 M54.6 Pain in thoracic spine [...] 04/05/2019 Z28.21 Immunization not carried out because of Teresa Gilbert MD patient refusal 04/04/2019 M25.532 Pain in left wrist Caprice Burgos MD 04/04/2019 M65.4 Radial styloid tenosynovitis [Caprice Yao MD Quervain] 03/29/2019 M25.512 Pain in left shoulder Lore Dhillon MD 03/29/2019 M79.18 Myalgia, other site Lore Dhillon MD 03/23/2019 M25.512 Pain in left shoulder Caprice Burgos MD 03/23/2019 M75.42 Impingement syndrome of left shoulder Caprice Burgos MD 03/23/2019 M54.12 Radiculopathy, cervical region Caprice Burgos MD 12/07/2018 M25.531 Pain in right wrist Caren Sorensen MD 12/07/2018 M65.4 Radial styloid tenosynovitis [Caren Oshea MD Quervain] 12/07/2018 R60.0 Localized edema Caren Sorensen MD 12/07/2018 K21.9 Gastro-esophageal reflux disease Caren Sorensen MD without esophagitis Plan of Treatment Future Appointment(s):07/06/2019 4:00 pm - Teresa Gilbert MD at Primary Care Embqha1806/02/2019 - Caprice Burgos, MDM54.2 YmzyclopkgmH64.42 Impingement syndrome of left ohabmfjlD91.12 Radiculopathy, cervical regionNew Xrays:MRI, Cervical Spine, W/O Contrast, Ordered: 06/02/19 Functional Status Functional Condition Comment Date Status Independent with all ADL's Active Mental Status Description No Information Available Referrals Refer to Reason for Referral Status Appt Date Lore Dhillon MD Neck & Back Pain Closed 03/29/2019 [address], [address] [place] [address] [phone]
--- OUTSIDE RECORDS SUMMARY | 2019-06-24 10:55 | XMS REPORT | Continuity of Care Document ---
:1980 External Reference #:[id number] Author Name Lore Dhillon MD Address [address] [place] [address] Care Team Providers Name Role Phone April Heaton CNM - Advanced Practice Care Team Information Socket Puller Doughnut Dough Mixer Marie Peoples NP, JIMENA - Nurse Care Team Information Socket Puller Practitioner Problems Active Problems Provider Date Obesity [...] when she was 19 Smoking Status Reviewed: 04/05/19 Patient is a former smoked for 1 [...] 1units M25.531 Caren Sorensen, 06/2018 Medium MD [facility] [place] Bumetanide 2 tab by mouth in 90tabs [...] apply powder in 60gm Caren Sorensen, 03/16/2017 [id number]/GM abdomen folds two MD Powder times a day as needed until rash disappears. History Medications Wrist Brace right wrist. Wear 1units M25.531 Caren Sorensen MD 11/22/2018 - brace during the 11/22/2018 [facility] [place] [facility] day Medications Administered in Office Medication SIG Qnty Indications Ordering Provider Date Depomedrol 40mg/1cc Caprice Burgos MD 04/04/2019 (methylprednisolone acetate) Injection Immunizations CPT Code Status Date Vaccine Lot # [id number] Refused 04/05/2019 Influenza Virus Vaccine, Quadrivalent, 36 Mos+, .5ML Vital Signs Date Vital Result Comment 04/18/2019 8:27am BP Systolic Sitting Right Arm 120 mmHg BP Diastolic Sitting Right Arm 67 mmHg Heart Rate 91 /min Height 68 inches 5'8" Weight 294.00 lb BMI (Body Mass Index) 44.7 kg/m2 BSA (Body Surface Area) 2.41 m2 Bath body weight in kilograms 63 kg 04/05/2019 3:49pm BP Systolic Sitting Right Arm 118 mmHg BP Diastolic Sitting Right Arm 66 mmHg Body Temperature 99.2 F Heart Rate 98 /min Respiratory Rate 20 /min Height 68 inches 5'8" Weight 288.00 lb BMI (Body Mass Index) 43.8 kg/m2 BSA (Body Surface Area) 2.39 m2 Bath body weight in kilograms 63 kg O2 % BldC Oximetry 97 % Results Test Acquired Date Facility Test Result H/L Range Note Basic Metabolic 04/03/2019 [facility] Glucose 135 mg/dL High 74-106 1 Panel [address] [place], [place] [id number] [phone] BUN 15 mg/dL Normal 7-18 Creatinine 0.9 mg/dL Normal 0.6-1.3 Glom Filtration Rate, Estimate >60 mL/min >60 If >60 mL/min >60 2 BUN/Creat 16.6 ratio Sodium 138 mmol/L Normal 136-145 Potassium 3.9 mmol/L Normal 3.5-5.1 Chloride 108 mmol/L High 98-107 Carbon Dioxide 24 mmol/L Normal 21-32 Anion Gap 6 mEq/L Low 8-16 Calcium 8.6 mg/dL Normal 8.5-10.1 Glycohemoglobin 04/03/2019 [facility] Glycohemoglobin 5.7 % Normal 4.2-6.3 3 A1c [address] [facility] (A1c) [place], [place] [id number] [phone] eAG 117 mg/dL LDL Cholesterol Profile 04/03/2019 [facility] Cholesterol 181 mg/dL <200 4 [address] [place] [address] [phone] Triglycerides 161 mg/dL High <150 5 HDL Cholesterol 39 mg/dL Low >40 6 LDL-Cholesterol 110 mg/dL < 100 7 CBC W/Automated 04/03/2019 [facility] White Blood 7.6 K/uL Normal 3.1-10.[address] Count [place], [place] [id number] [phone] Red Blood Count 4.62 M/uL Normal 3.90-5.40 [...] 40.4-72.8 Lymph % 21.3 % Normal 20.0-42.0 [place] % 5.1 % Normal 4.3-13.2 Eo% 3.0 % Normal 0.0-6.6 Bas% 0.7 % Normal 0.0-1.1 Immature Grans 0.3 % Normal 0.0-5.0 NRBC % 0.0 /100WBC < 10/ 100 WBC Neut# 5.31 K/uL Normal 1.8-7.0 Lymph # 1.62 K/uL Normal 1.0-4.0 [place] # 0.39 K/uL Normal 0.3-0.9 Eos # [...] for more aggressive treatment of glycemia. The [place] Diabetes [employer] recommends that a primary goal [...] Muscles 04/04/2019 Injection:Tendon Sheath,Lig. Cyst Completed 03/23/2019 03033 Radiology, Shoulder: Two Views (Sso) Completed 03/23/2019 16500 Radiology, Shoulder: Two Views (Sso) Completed Medical Devices Description No Information Available Encounters Type Date Location Provider Dx Diagnosis Office Visit 04/05/2019 Primary Care Ofelia R60.0 Localized edema 4:00p Office MD Teresa Z28.21 Immunization not carried out because of patient refusal Office Visit 04/04/2019 11:00a Orthopaedic Office Caprice Burgos, M25.532 Pain in left MD wrist M65.4 Radial styloid tenosynovitis [de Quervain] Office Visit 03/29/2019 9:30a Physical Medicine Cator, Lore, M25.512 Pain in left & Infectious MD shoulder Disease M79.18 Myalgia, other site Office Visit 12/07/2018 1:00p Primary Care Edu Caren, M25.531 Pain in right Office MD wrist M65.4 Radial styloid tenosynovitis [de Quervain] R60.0 Localized edema K21.9 Gastro-esophageal reflux disease without esophagitis Office Visit 11/22/2018 2:30p Primary Care Marie Peoples, M25.531 Pain in Office MS, FURNACE COMBINATION ANALYST-C, CNM right wrist M65.4 Radial styloid tenosynovitis [de Quervain] Assessments Date Code Description Provider 05/02/2019 M54.2 Cervicalgia Lore Dhillon MD 05/02/2019 [...] Pain in right wrist Marie Peoples, , FURNACE COMBINATION ANALYST-C, CNM 11/22/2018 M65.4 Radial styloid tenosynovitis [Marie Moreno MS, FURNACE COMBINATION ANALYST -C, Aidee] CN Plan of Treatment Future Appointment(s):05/04/2019 2:00 pm - Lore Dhillon MD at Physical Medicine & Infectious Xnmvbwy0807/06/2019 4:00 pm - Teresa Gilbert MD at Primary Care Aeoijn0705/02/2019 - Lore Dhillon, MDM54.2 KcjawklwfotD53.6 Pain in thoracic fetquS21.18 Myalgia, other siteFollow up:Follow-up office visit. Functional Status Functional Condition Comment Date Status Independent with all ADL's Active Mental Status Description No Information Available Referrals Refer to Dr Reason for Referral Status Appt Date Lore Dhillon MD Neck & Back Pain Closed 03/29/2019 [address], [address] [place] [address] [phone]
--- OUTSIDE RECORDS SUMMARY | 2019-06-24 10:55 | XMS REPORT | Continuity of Care Document ---
:1980 External Reference #:[id number] Author Name Lore Dhillon MD Address [address] [place] [place] [address] Care Team Providers Name Role Phone April Heaton CNM - Advanced Practice Care Team Information Voltmeter Operator Regional Office Coordinator Marie Peoples NP, JIMENA - Nurse Care Team Information Voltmeter Operator Practitioner Problems Active Problems Provider Date Obesity [...] M25.531 Caren Sorensen, 06/2018 Medium MD [facility] Bumetanide 2 tab by mouth in 90tabs [...] apply powder in 60gm Caren Sorensen, 03/16/2017 [id number]/GM abdomen folds two MD Powder times a day as needed until rash disappears. History Medications Wrist Brace right wrist. Wear 1units M25.531 Caren Sorensen MD 11/22/2018 - brace during the 11/22/2018 [facility] day Medications Administered in Office Medication SIG Qnty Indications Ordering Provider Date Depomedrol 40mg/1cc Caprice Burgos MD 04/04/2019 (methylprednisolone acetate) Injection Immunizations CPT Code Status Date Vaccine Lot # [id number] Refused 04/05/2019 Influenza Virus Vaccine, Quadrivalent, 36 Mos+, .5ML Vital Signs Date Vital Result Comment 05/05/2019 8:28am BP Systolic Sitting Left Arm 125 mmHg BP Diastolic Sitting Left Arm 64 mmHg Body Temperature 98.1 F Heart Rate 88 /min Height 68 inches 5'8" Weight 299.00 lb BMI (Body Mass Index) 45.5 kg/m2 BSA (Body Surface Area) 2.42 m2 [place] body weight in kilograms 63 kg 04/18/2019 8:27am BP Systolic Sitting Right Arm 120 mmHg BP Diastolic Sitting Right Arm 67 mmHg Heart Rate 91 /min Height 68 inches 5'8" Weight 294.00 lb BMI (Body Mass Index) 44.7 kg/m2 BSA (Body Surface Area) 2.41 m2 [place] body weight in kilograms 63 kg Results Test Acquired Date Facility Test Result H/L Range Note Basic Metabolic 04/03/2019 [facility] Glucose 135 mg/dL High 74-106 1 Panel [address] [place], [place] [address] [phone] BUN 15 mg/dL Normal 7-18 Creatinine 0.9 mg/dL Normal 0.6-1.3 Glom Filtration Rate, Estimate >60 mL/min >60 If >60 mL/min >60 2 BUN/Creat 16.6 ratio Sodium 138 mmol/L Normal 136-145 Potassium 3.9 mmol/L Normal 3.5-5.1 Chloride 108 mmol/L High 98-107 Carbon Dioxide 24 mmol/L Normal 21-32 Anion Gap 6 mEq/L Low 8-16 Calcium 8.6 mg/dL Normal 8.5-10.1 Glycohemoglobin 04/03/2019 [facility] Glycohemoglobin 5.7 % Normal 4.2-6.3 3 A1c [address] [facility] (A1c) [place], [place] [id number] [phone] eAG 117 mg/dL LDL Cholesterol Profile 04/03/2019 [facility] Cholesterol 181 mg/dL <200 [address] [place], [place] [address] [phone] Triglycerides 161 mg/dL High <150 5 HDL Cholesterol 39 mg/dL Low >40 6 LDL-Cholesterol 110 mg/dL < 100 7 CBC W/Automated 04/03/2019 [facility] White Blood 7.6 K/uL Normal 3.1-10.7 Diff 134 [facility] [address] [phone] Red Blood Count 4.62 M/uL Normal 3.90-5.40 [...] 40.4-72.8 Lymph % 21.3 % Normal 20.0-42.0 [place] % 5.1 % Normal 4.3-13.2 Eo% 3.0 % Normal 0.0-6.6 Bas% 0.7 % Normal 0.0-1.1 Immature Grans 0.3 % Normal 0.0-5.0 NRBC % 0.0 /100WBC < 10/ 100 WBC Neut# 5.31 K/uL Normal 1.8-7.0 Lymph # 1.62 K/uL Normal 1.0-4.0 [place] # 0.39 K/uL Normal 0.3-0.9 Eos # [...] for more aggressive treatment of glycemia. The [place] Diabetes Association recommends that a primary goal [...] Muscles 04/04/2019 Injection:Tendon Sheath,Lig. Cyst Completed 03/23/2019 65742 Radiology, Shoulder: Two Views (Sso) Completed 03/23/2019 15765 Radiology, Shoulder: Two Views (Sso) Completed Medical [...] site Office Visit 12/07/2018 1:00p Primary Care Edu, Caren, M25.531 Pain in right Office MD wrist M65.4 Radial styloid tenosynovitis [de Quervain] R60.0 Localized edema K21.9 Gastro-esophageal reflux disease without esophagitis Office Visit 11/22/2018 2:30p Primary Care [place] Marie, M25.531 Pain in Office MS, WET CROWN BLOCKING OPERATOR-C, CNM right wrist M65.4 Radial styloid tenosynovitis [de Quervain] Assessments Date Code Description Provider 05/05/2019 M54.2 Cervicalgia Lore Dhillon MD 05/05/2019 M54.6 Pain in thoracic spine Lore Dhillon MD 05/05/2019 M79.18 Myalgia, other site Lore Dhillon MD 05/02/2019 M54.2 Cervicalgia Lore Dhillon MD 05/02/2019 M54.6 Pain in thoracic spine Lore Dhillon MD 05/02/2019 M79.18 Myalgia, other site Lore Dhillon MD 04/25/2019 M54.2 CervicalLore Chaney MD 04/25/2019 M54.6 Pain in thoracic spine [...] M25.531 Pain in right wrist Marie Peoples, MS, WET CROWN BLOCKING OPERATOR-C, CNM 11/22/2018 M65.4 Radial styloid tenosynovitis [Marie Moreno, MS, WET CROWN BLOCKING OPERATOR -C, Aidee] CN Plan of Treatment Future Appointment(s):05/08/2019 11:30 am - Lore Dhillon MD at Physical Medicine & Infectious Bazzivm2907/06/2019 4:00 pm - Teresa Gilbert MD at Primary Care Bmpnsp0505/05/2019 - Lore Dhillon, MDM54.2 IjtzvbnrucnR59.6 Pain in thoracic vjzueH44.18 Myalgia, other siteComments:I would recommend another round of trigger point injections paired with physical therapy.Follow up :As soon as trigger point injections can be scheduled. Functional Status Functional Condition Comment Date Status Independent with all ADL's Active Mental Status Description No Information Available Referrals Refer to Reason for Referral Status Appt Date Lore Dhillon MD Neck & Back Pain Closed 03/29/2019 [address], [address] [place] [address] [phone]
--- OUTSIDE RECORDS SUMMARY | 2019-06-24 10:55 | XMS REPORT | Continuity of Care Document ---
:1980 External Reference #:[id number] Author Name Lore Dhillon MD Address [address] [place] [address] Care Team Providers Name Role Phone April Heaton CNM - Advanced Practice Care Team Information Music Publisher Timber Management Assistant Marie Peoples NP, JIMENA - Nurse Care Team Information Music Publisher Practitioner Problems Active Problems Provider Date Obesity [...] 1units M25.531 Caren Sorensen, 06/2018 Medium MD [facility] [place] Bumetanide 2 tab by mouth in [...] apply powder in 60gm Caren Sorensen, 03/16/2017 [id number]/GM abdomen folds two MD Powder times a day as needed until rash disappears. History Medications Wrist Brace right wrist. Wear 1units M25.531 Caren Sorensen MD 11/22/2018 - brace during the 11/22/2018 [facility] [place] day Medications Administered in Office Medication SIG Qnty Indications Ordering Provider Date Depomedrol 40mg/1cc Caprice Burgos MD 04/04/2019 (methylprednisolone acetate) Injection Immunizations CPT Code Status Date Vaccine Lot # [id number] Refused 04/05/2019 Influenza Virus Vaccine, Quadrivalent, 36 Mos+, .5ML Vital Signs Date Vital Result Comment 05/05/2019 8:28am BP Systolic Sitting Left Arm 125 mmHg BP Diastolic Sitting Left Arm 64 mmHg Body Temperature 98.1 F Heart Rate 88 /min Height 68 inches 5'8" Weight 299.00 lb BMI (Body Mass Index) 45.5 kg/m2 BSA (Body Surface Area) 2.42 m2 [place] body weight in kilograms 63 kg 04/18/2019 8:27am BP Systolic Sitting Right Arm 120 mmHg BP Diastolic Sitting Right Arm 67 mmHg Heart Rate 91 /min Height 68 inches 5'8" Weight 294.00 lb BMI (Body Mass Index) 44.7 kg/m2 BSA (Body Surface Area) 2.41 m2 [place] body weight in kilograms 63 kg Results Test Acquired Date Facility Test Result H/L Range Note Basic Metabolic 04/03/2019 [facility] Glucose 135 mg/dL High 74-106 1 Panel [address] [place], [place] [address] [phone] BUN 15 mg/dL Normal 7-18 Creatinine 0.9 mg/dL Normal 0.6-1.3 Glom Filtration Rate, Estimate >60 mL/min >60 If >60 mL/min >60 2 BUN/Creat 16.6 ratio Sodium 138 mmol/L Normal 136-145 Potassium 3.9 mmol/L Normal 3.5-5.1 Chloride 108 mmol/L High 98-107 Carbon Dioxide 24 mmol/L Normal 21-32 Anion Gap 6 mEq/L Low 8-16 Calcium 8.6 mg/dL Normal 8.5-10.1 Glycohemoglobin 04/03/2019 [facility] Glycohemoglobin 5.7 % Normal 4.2-6.3 3 A1c [address] [facility] (A1c) [place], [place] [id number] [phone] eAG 117 mg/dL LDL Cholesterol Profile 04/03/2019 [facility] Cholesterol 181 mg/dL <[address] [place], [place] [address] [phone] Triglycerides 161 mg/dL High <150 5 HDL Cholesterol 39 mg/dL Low >40 6 LDL-Cholesterol 110 mg/dL < 100 7 CBC W/Automated 04/03/2019 [facility] White Blood 7.6 K/uL Normal 3.1-10.7 Diff 134 [facility] [place] [address] [phone] Red Blood Count 4.62 M/uL Normal 3.90-5.40 [...] 40.4-72.8 Lymph % 21.3 % Normal 20.0-42.0 [place] % 5.1 % Normal 4.3-13.2 Eo% 3.0 % Normal 0.0-6.6 Bas% 0.7 % Normal 0.0-1.1 Immature Grans 0.3 % Normal 0.0-5.0 NRBC % 0.0 /100WBC < 10/ 100 WBC Neut# 5.31 K/uL Normal 1.8-7.0 Lymph # 1.62 K/uL Normal 1.0-4.0 [place] # 0.39 K/uL Normal 0.3-0.9 Eos # [...] for more aggressive treatment of glycemia. The [place] Diabetes Association recommends that a primary goal [...] Muscles 04/04/2019 Injection:Tendon Sheath,Lig. Cyst Completed 03/23/2019 92920 Radiology, Shoulder: Two Views (Sso) Completed 03/23/2019 08484 Radiology, Shoulder: Two Views (Sso) Completed Medical Devices Description No Information Available Encounters Type Date Location Provider Dx Diagnosis Office Visit 05/05/2019 Physical Medicine & CatLore rodriguez MD M54.2 Cervicalgia 8:30a Infectious Disease M54.6 [...] Office Visit 11/22/2018 2:30p Primary Care Marie Pepoles, M25.531 Pain in Office MS, HAND BRAILLE TRANSCRIBER-C, CNM right wrist M65.4 Radial styloid tenosynovitis [de Quervain] Assessments Date Code Description Provider 05/12/2019 M54.2 Cervicalgia Lore Dhillon MD 05/12/2019 [...] Pain in right wrist Marie Peoples MS, HAND BRAILLE TRANSCRIBER-C, JIMENA 11/22/2018 M65.4 Radial styloid tenosynovitis [Marie Moreno MS, ROBIN Chavez, Aidee] JIMENA Plan of Treatment Future Appointment(s):05/15/2019 10:45 am - Lore Dhillon MD at Physical Medicine & Infectious Wczpfhk1007/06/2019 4:00 pm - Teresa Gilbert MD at Primary Care Ibbwna8705/12/2019 - Lore Dhillon, MDM54.2 RbaeppwgrhgU13.6 Pain in thoracic qysgzZ13.18 Myalgia, other siteComments:Ms. Charlton continues to slowly improve. She is working 4 hours a day. She will continue with physical therapy. Her last trigger point injection of this second set is on 05/15.Follow up:05/15/19. Functional Status Functional Condition Comment Date Status Independent with all ADL's Active Mental Status Description No Information Available Referrals Refer to Reason for Referral Status Appt Date Lore Dhillon MD Neck & Back Pain Closed 03/29/2019 [address], [address] [place] [address] [phone]
[2019-06-24 11:49] VITALS: BP 129/89
--- NOTE | 2019-06-24 12:46 | UC ---
Respiratory Complaint HPI - HPI Summary HPI Summary: Patient is 38 year old female , who present today to the urgent care with for past 4 days. She reports cough productive of sputum , rib pain from coughing so hard, sneezing and sore throat from cough. Denies fever. No sick contacts . Denies any chest pain or shortness of breath . Denies any abdominal pain , nausea or vomiting , diarrhea or constipation. She tried NyQuil and was able to sleep last night. - History of Current Complaint Chief Complaint: UCGeneralIllness Stated Complaint: ST/CHEST CONGESTION Time Seen by Provider: 06/24/19 12:25 Hx Obtained From: Patient Hx Last Menstrual Period: 06/04/19 Pain Intensity: 6 - Allergies/Home Medications Allergies/Adverse Reactions: Allergies Allergy/AdvReac Type Severity Reaction Status Date / Time pepperoni Allergy Vomiting Uncoded 06/24/19 11:49 Home Medications: Home Medications Omeprazole CAP (NF) [Prilosec CAP* 20 MG] 20 mg PO DAILY 06/24/19 [History Confirmed 06/24/19] Potassium Gluconate [Potassium] 600 mg PO 06/24/19 [History] PMH/Surg Hx/FS Hx/Imm Hx - Additional Past Medical History Additional PMH: Past Medical History : Asthma Past Surgical History: tonsillectomy Family History : non contributory Social History : no alcohol, non smoker, no drug use. Previously Healthy: Yes Other History Of: Negative For: HIV, Hepatitis B, Hepatitis C, Anticoagulant Therapy - Surgical History Surgical History: Yes Surgery Procedure, Year, and Place: TONSILECTOMY - Family History Known Family History: Positive: None, Non-Contributory Negative: Cardiac Disease - No premature heart disease in 1st degree relatives. - Social History Alcohol Use: None Substance Use Type: None Smoking Status (MU): Never Smoked Tobacco When Did the Patient Quit Smoking/Using Tobacco: 1999 - Immunization History Most Recent Influenza Vaccination: no Review of Systems All Other Systems Reviewed And Are Negative: Yes Constitutional: Positive: Negative Skin: Positive: Negative Eyes: Positive: Negative ENT: Positive: Sore Throat, Ear Ache, Nasal Discharge, Sinus Congestion Respiratory: Positive: Cough - Productive Cardiovascular: Positive: Negative Gastrointestinal: Positive: Negative Genitourinary: Positive: Negative Motor: Positive: Negative Neurovascular: Positive: Negative Musculoskeletal: Positive: Negative Neurological: Positive: Negative Psychological: Positive: Negative Is Patient Immunocompromised?: No Physical Exam - Summary Physical Exam Summary: Physical Exam: Const: Appears well. No signs of apparent distress present. Alert and oriented x 3. Musculo: Walks with a normal gait. Head/Face: Atraumatic, normocephalic on inspection. Eyes: EOMI and PERRLA in both eyes. Conjunctivae clear. No discharge noted ENT: Hearing normal, TM normal appearing bilaterally, non bulging , non erythematous . In the left external auditory canal there is a pedunculated growth on the posterior wall. No tenderness to palpation on maxillary and frontal sinus. There is pharyngeal erythema without any exudates . Uvula is midline. No cervical or submandibular lymphadenopathy noted. Respiratory: Respirations are unlabored. Lungs clear to auscultation bilaterally, no wheezing , rhonchi or rales noted . CVS: Regular rate and Rhythm, S1S2 normal , no murmurs identified. Extremities: Peripheral circulation is grossly normal. Pulses 2+ Abdomen : Soft non tender , nondistended , Bowel sounds present . No guarding , rebound tenderness or rigidity noted. Skin: No lesions or rash located on the upper extremities or on the lower extremities. Neuro: Cranial nerves II to XII intact, motor and sensory intact. DTR Intact bilaterally. Mood is normal. Affect is normal. Triage Information Reviewed: Yes Vital Signs: Initial Vital Signs Temp 98.2 F 06/24/19 11:45 Pulse 73 06/24/19 11:45 Resp 18 06/24/19 11:45 BP 129/89 06/24/19 11:45 Pulse Ox 100 06/24/19 11:45 Vital Signs Reviewed: Yes Respiratory Course/Dx - Course Course Of Treatment: For the pedunculated growth of the external auditory canal of the left ear, we discussed about following up with ENT. Rapid strep test neg Likely a viral illness . Plan supportive management. - Differential Dx/Diagnosis Provider Diagnosis: Lesion of external auditory canal, Viral respiratory illness Discharge ED - Sign-Out/Discharge Documenting (check all that apply): Patient Departure All imaging exams completed and their final reports reviewed: No Studies - Discharge Plan Condition: Stable Disposition: HOME Prescriptions: Benzonatate CAP* [Tessalon 100 MG CAP*] 100 mg PO TID PRN 10 Days #30 cap PRN Reason: Cough Patient Education Materials: Viral Syndrome (ED) Referrals: [facility] [Outside] - 2 Days Dante Rosen MD [Medical Doctor] - 1 Week No Primary Care Phys,NOPCP [Primary Care Provider] - Additional Instructions: Keep yourself hydrated Tylenol or ibuprofen as needed for fever Follow up with your primary care doctor in 2-3 days. Please follow up with ENT for the consult in regards to evaluation of the left ear canal. Your blood pressure slightly high in Urgent care today , plan follow up with PCP for better control . Return to Urgent care / ER if symptoms get worse. - Billing Disposition and Condition Condition: STABLE Disposition: Home
== END 2019-06-24 13:25 | disposition home or self-care (01) ==
LOC: UCCORT 10:32
DX: H61.892 Other specified disorders of left external ear (principal); B34.9 Viral infection, unspecified; J02.9 Acute pharyngitis, unspecified; R09.81 Nasal congestion; R05 Cough; J45.909 Unspecified asthma, uncomplicated; Z91.018 Allergy to other foods
CPT/HCPCS: 87651; 99212; G0463